=== PATIENT | female | born 1945 | race Caucasian/White ===

== ENCOUNTER 2023-09-27 14:01 | Outpatient (OUT) | payer MEDICARE, BC, SELFPAY ==
--- NOTE | 2023-09-27 | XR_ITS ---
The [address] [address] Patient Name: OTILIO DARLING MRN: [id number] date: 1945 Sex: F Assigned Patient Location: [facility] Current Patient Location: [facility] Accession/Order Number: [id number] Exam Date: 09/27/2023 14:33 Report Date: 09/27/2023 16:04 At the request of: NORMA IRAHETA Procedure: XR foot LT min 3V PROCEDURE: XR foot LT min 3V DATE: 09/27/2023 1:33 PM [facility] COMPARISONS: Reference is made to multiple ankle radiographs which show ankle surgery. Reference is made to foot images of 04/22/2020 CLINICAL INDICATION: LEFT FOOT PAIN FINDINGS: There is diffuse bone demineralization. There is evidence of extensive ankle surgery as described on ankle radiographs done the same day. There is mild hallux valgus deformity. There is mild to moderate first carpometacarpal degenerative change. There is mild midfoot degenerative change and some subtalar degenerative change. There is a moderate-sized spur off the posterior inferior os calcis.. XR/XR foot LT min 3V IMPRESSION: Findings as discussed above. Foot radiographs show no evidence of acute osseous abnormalities. Electronically authenticated by: YARELIS AMARAL Date: 09/27/2023 16:04
--- NOTE | 2023-09-27 | XR_ITS ---
The [address] [address] Patient Name: OTILIO DARLING MRN: [id number] date: 1945 Sex: F Assigned Patient Location: [facility] Current Patient Location: [facility] Accession/Order Number: [id number] Exam Date: 09/27/2023 14:31 Report Date: 09/27/2023 16:02 At the request of: NORMA IRAHETA Procedure: XR ankle LT min 3V PROCEDURE: XR ankle LT min 3V DATE: 09/27/2023 1:31 PM CHIEF CRNA COMPARISONS: Left ankle radiographs from 07/07/2021 CLINICAL INDICATION: LEFT ANKLE PAIN FINDINGS: There is no evidence of fractures or other acute osseous abnormalities. 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 Moderate-sized spur is noted off the posterior inferior os calcis, stable. XR/XR ankle LT min 3V IMPRESSION: Stable postop changes of the left ankle. Electronically authenticated by: YARELIS AMARAL Date: 09/27/2023 16:02
== END 2023-09-27 14:02 | disposition home or self-care (01) ==
LOC: RAD 14:02
PROVIDERS: Visit Provider Podiatrist Foot & Ankle Surgery
DX: M79.672 Pain in left foot (principal); M25.572 Pain in left ankle and joints of left foot
CPT/HCPCS: 73610; 73630

== ENCOUNTER 2023-10-31 14:13 | Outpatient (OUT) | payer MEDICARE, BC, SELFPAY ==
--- NOTE | 2023-10-31 | CONS_ITS ---
CONSULTATION DATE: 10/31/2023 TO: Dr. Marques CHIEF COMPLAINT: Includes left foot pain. HISTORY OF PRESENT ILLNESS: Review of systems, past medical/surgical history were obtained and documented on the health questionnaire and is available upon request. She is a 77-year-old female who has undergone left ankle replacement in 2019. She reports that her ankle pain has dramatically improved, but was left with left foot pain, described as 10/10, deep aching character with a sharp component. Pain increased with any kind of weight bearing maneuver. She also reports dorsiflexion of her toes is quite painful. She has very little mobility of her ankle itself. She denies any change in bowel and bladder habits or new sensorimotor changes in the lower extremities. MEDICATION: Current medication includes ibuprofen which she has been taking for at least the last two years. She has also been involved in physical therapy in a supervised fashion, despite considerable efforts and improvement in her symptomatology. She reports her residual pain still alters her quality of life, level of functioning and sleep pattern, and reports the pain as being significant. EXAMINATION: Notable for the patient having no clinical signs consistent with myelopathy or radiculopathy involving the lower extremities. She is status post left ankle replacement. She has limited range of motion to dorsiflexion, plantar flexion, inversion and eversion; however, she has fairly well preserved dorsiflexion and plantar flexion of her toes, but with the performed range of motion of her toes, she did complain of significant pain in her foot, starting at the ball of her foot, extending to the mid portion of her left foot. She is exquisitely tender and severe spasm of the left plantaris muscle, significant dysesthesia and hypoesthesia long the distribution of the left medial calcaneal nerve. I could not appreciate any signs consistent with complex regional pain syndrome type 1 or type 2. 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 RECOMMENDATIONS: I have asked the patient to initiate physical therapy with the use of various modalities including ultrasound for her left plantaris spasm. I have placed her on baclofen 10 mg pills, half a pill to one pill b.i.d. Follow up with the patient in approximately four weeks time to monitor her response. I have also indicated to the patient that we may consider proceeding with a medial calcaneal nerve injection, if her current symptoms do not improve with further conservative therapy. As part of providing excellent, safe, comprehensive care, the following was completed at our patient's visit: 1. A medication reconciliation and review to ensure accurate knowledge of current/active medications, including asking our patients to inform us about any [id number] medications or herbal remedies/nutritional supplements/alternative remedies. 2. A review to specifically ensure our patients have had annual screening for: elevated body mass index (BMI, see intake chart for exact total), tobacco use, screening for depression, and screening for unhealthy alcohol use. When screening is concerning, patients are provided with education and the specific recommendation to discuss the concerning health issue and treatment options with their primary care provider. MÓNICA
--- OUTSIDE RECORDS SUMMARY | 2023-10-31 14:17 | XMS_ITS | CCD ---
Author Name Unknown Address [address] [place] [address] Organization [facility] Care Team Providers Care Station Usher Name Role Phone Sudeep Ackerman Unavailable Sudeep Kelly Unavailable Sudeep Ackerman Unavailable Evelyn Raymond Unavailable Matt León Unavailable DO Sudeep Ackerman Primary Care Provider PARVIZ Marques Attending Provider SHONNA WOODS Attending Unavailable SHONNA WOODS Admitting Unavailable DO Sudeep Ackerman Primary Care Provider DO Sudeep Ackerman Attending Provider [phone] Sudeep Ackerman Primary Care Unavailable Sudeep Ackerman Attending Unavailable Sudeep Ackerman Admitting Unavailable Gerard Marques Admitting Unavailable Gerard Marques Attending Unavailable Sudeep Ackerman Primary Care Unavailable PARVIZ Marques Attending Provider Allergies Allergy Classification Reported Allergen(s) Allergy Type Date of Onset Reaction(s) Facility (11 sources) Cephalexin Drug Allergy 2 rash, itching, hives, Itching [facility] (16 sources) Cephalexin; Translations: [Keflex] Drug Allergy rash, itching, hives [facility] (1 source) Cephalexin Drug Allergy 2 [facility] Medications Current Medications Medication Drug Class(es) Dates Sig (Normalized) Sig (Original) 8 hr acetaminophen 650 mg extended release oral tablet (18 sources) Start: 02-02-2022 take 1 tablet by mouth every twelve hours Acetaminophen (Tylenol Arthritis) 650 mg Tablet Extended Release Active 650 MG PO Q12H February 01, 2022 11:00pm take 1 tablet by jaswant th every eight hours Tylenol 325 MG 1 tablet as needed Orally every 8 hrs PRN Not-Taking/PRN take 1 tablet by jaswant th every four hours Tylenol 325 MG 1 tablet as needed Orally every 4 hrs Active acetaminophen 325 mg / HYDROcodone bitartrate 5 mg oral tablet (2 sources) Opioid Agonist Start: 02-07-2022 take 1 tablet by mouth every eight hours as needed for pain HYDROcodone-Acetaminophen 5-325 MG 1 tablet as needed for pain Orally up to every 8 hrs for 5 days ANA: [id number] February, Active Start: 02-07-2022 take 1 tablet by jaswant th every four hours as needed for pain HYDROcodone-Acetaminophen 5-325 MG 1 tab let as needed for pain Orally up to every 4 hrs for 5 days ANA: [id number] February, Active Bacitraycin Plus 500-10 UNIT-MG/GM (6 sources) Bacitraycin Plus 500-10 UNIT-MG/GM Externally PRN Active Calcium + D 315-200 MG-UNIT (12 sources) take 1 tablet by jaswant th twice daily Calcium + D 315-200 MG-UNIT 1 tablet Orally Twice a day Not-Taking take 1 tablet by mouth twice michelle ly take 1 tablet by mouth twice michelle ly Calcium + D 315-200 MG-UNIT 1 tablet Orally Twice a day Active diclofenac sodium 0.01 mg/mg topical gel (2 sources) Nonsteroidal Anti-inflammatory Drug Start: 04-18-2022 Diclofenac Sodium 1 % apply 1-2 grams to affected area Externally Four times a day for 30 days Apr, Active escitalopram 5 mg oral tablet (4 sources) Serotonin Reuptake Inhibitor Start: 05-04-2022 Escitalopram Oxalate 5 MG 1 tablet x 7 days, and then 2 tablets for 23 days Orally Once a day for 30 day(s) Apr, Active gabapentin 300 mg oral capsule (6 sources) Anti-epileptic Agent Start: 07-05-2022 take 1 capsule by mouth twice daily Gabapentin 300 MG 1 capsule Orally twice daily for 30 day(s) Jun, Active Handicap placards as directed (4 sources) Start: 12-07-2022 Handicap placards as directed as directed as directed as directed Dec, Active meloxicam 7.5 mg oral tablet (20 sources) Nonsteroidal Anti-inflammatory Drug Start: 11-30-2021 take 7.5 mg by mouth once daily in the morning Meloxicam Active 7.5 MG PO Every morning February 01, 2022 11:00pm take 1 tablet by mouth every twe lve hours metoprolol tartrate 50 mg oral tablet (20 sources) beta-Adrenergic Isiah Start: 02-02-2022 take 50 mg by mouth twice daily Metoprolol Tartrate Active 50 MG PO Twice daily February 01, 2022 11:00pm Start: 07-23-2018 End: 02-02-2022 take 25 mg by mouth once daily Metoprolol Tartrate Dis continued 25 MG PO Daily July 22, 2018 11:00pm February 02, 2022 8:55am Multivitamin preparation (4 sources) Start: 02-02-2022 take 1 tablet by mouth once daily Multivitamin Active 1 TAB PO Daily February 01, 2022 11:00pm Start: 02-02-2022 take 1 tablet by jaswant th once daily Multivitamin Active 1 TAB PO Daily February 02, 2022 12:00am take 1 tablet by jaswant th once daily Multivitamin - 1 tablet Orally Once a day Active Clayton 3 340 MG (6 sources) take 2 capsules by mouth twice daily Clayton 3 340 MG 2 capsules Orally BID Active pravastatin sodium 40 mg oral tablet (20 sources) HMG-CoA Reductase Inhibitor Start: take 40 mg by mouth once daily in the morning Pravastatin Active 40 MG PO Every morning July 22, 2018 11:00pm Completed/Discontinued Medications Medication Drug Class(es) Dates Sig (Normalized) Sig (Original) famotidine 40 mg oral tablet (20 sources) Histamine-2 Receptor Antagonist Start: 09-16-2021 take 1 tablet by mouth every twenty-four hours Famotidine 40 MG 1 tablet as needed Orally Once a day for 30 day(s) Sep, Not-Taking/PRN ibuprofen 800 mg oral tablet (3 sources) Nonsteroidal Anti-inflammatory Drug Start: 08-02-2018 End: 08-03-2018 Ibuprofen Discontinued 800 MG PO 2-3 TIMES PER DAY August 01, 2018 11:00pm August 03, 2018 5:34pm Problems Active Problems Problem Classification Problem Date Documented Date Episodic/Chronic Diabetes mellitus without complication (20 sources) Disorder of glucose metabolism; Translations: [Other abnormal glucose] Episodic Disorders of lipid metabolism (20 sources) Pure hypercholesterolemia; Translations: [Pure hypercholesterolemia, unspecified] Onset: 09-16-2021 Resolved: 09-16-2021 Chronic Esophageal disorders (20 sources) Gastroesophageal reflux disease without esophagitis; Translations: [Gastro-esophageal reflux disease without esophagitis] Onset: 09-16-2021 Resolved: 09-16-2021 Chronic Essential hypertension (20 sources) Essential hypertension; Translations: [Essential (primary) hypertension] Onset: 09-16-2021 Resolved: 03-17-2022 Chronic Immunizations and screening for infectious disease (1 source) Encounter for immunization Episodic Malaise and fatigue (20 sources) Fatigue; Translations: [Chronic fatigue, unspecified] Chronic Mood disorders (10 sources) Moderate major depression ; Translations: [Major depressive disorder, single episode, moderate] Onset: 05-04-2022 Resolved: 05-04-2022 Chronic Nonspecific chest pain (1 source) Chest pain, unspecified Episodic Nutritional deficiencies (20 sources) Vitamin D deficiency; Translations: [Vitamin D deficiency, unspecified] Chronic Occlusion or stenosis of precerebral arteries (6 sources) Bilateral stenosis of carotid arteries; Translations: [Occlusion and stenosis of bilateral carotid arteries] Chronic Osteoporosis (20 sources) Osteoporosis; Translations: [Age-related osteoporosis without current pathological fracture] Onset: 07-08-2021 Resolved: 07-08-2021 Chronic Other circulatory disease (2 sources) Other specified symptoms and signs involving the circulatory and respiratory systems; Translations: [Other specified symptoms and signs involving the circulatory and respiratory systems] Onset: 10-13-2023 Episodic Other inflammatory condition of skin (20 sources) Psoriasis; Translations: [Other psoriasis] Chronic Other nervous system disorders (20 sources) Carpal tunnel syndrome; Translations: [Carpal tunnel syndrome, unspecified upper limb] Chronic Other nervous system disorders (20 sources) Chronic pain; Translations: [Other chronic pain] Chronic Other nervous system disorders (20 sources) Polyneuropathy; Translations: [Polyneuropathy, unspecified] Chronic Other nervous system disorders (1 source) Other chronic pain; Translations: [Other chronic pain G89.29] Onset: 07-08-2021 Resolved: 07-08-2021 Chronic Other nervous system disorders (3 sources) Carpal tunnel syndrome, right upper limb Onset: 12-29-2021 Resolved: 05-17-2022 Chronic Other nervous system disorders (15 sources) Carpal tunnel syndrome of right wrist; Translations: [Carpal tunnel syndrome, right upper limb] Chronic Other nervous system disorders (2 sources) Carpal tunnel syndrome, bilateral upper limbs; Translations: [Carpal tunnel syndrome, bilateral upper limbs] Onset: 04-18-2022 Resolved: 04-18-2022 Chronic Other nervous system disorders (8 sources) Carpal tunnel syndrome of left wrist; Translations: [Carpal tunnel syndrome, left upper limb] Chronic Other nervous system disorders (1 source) Carpal tunnel syndrome, left upper limb Onset: 05-17-2022 Resolved: 05-17-2022 Chronic Other nervous system disorders (5 sources) Skin sensation disturbance; Translations: [Paresthesia of skin] Episodic Other nervous system disorders (1 source) Paresthesia of skin; Translations: [Numbness and tingling of foot] Episodic Spondylosis; intervertebral disc disorders; other back problems (20 sources) Degeneration of lumbar intervertebral disc; Translations: [Other intervertebral disc degeneration, lumbar region] Onset: 03-17-2022 Resolved: 03-17-2022 Chronic Unclassified (1 source) Encounter for screening mammogram for malignant neoplasm of breast; Translations: [Encounter for screening mammogram for malignant neoplasm of breast] Onset: 09-04-2023 Past or Other Problems Problem Classification Problem Date Documented Date Episodic/Chronic E Codes: Fall (1 source) Unspecified fall, initial encounter Onset: 12-15-2021 Resolved: 12-15-2021 Episodic Fluid and electrolyte disorders (2 sources) Hyperkalemia Onset: 12-26-2021 Resolved: 12-29-2021 Episodic Other non-traumatic joint disorders (1 source) Pain in right shoulder; Translations: [Pain in right shoulder M25.511] Onset: 07-08-2021 Resolved: 07-08-2021 Episodic Other non-traumatic joint disorders (1 source) Pain in left shoulder; Translations: [Pain in left shoulder M25.512] Onset: 07-08-2021 Resolved: 07-08-2021 Episodic Other non-traumatic joint disorders (1 source) Pain in right hip Onset: 12-15-2021 Resolved: 12-15-2021 Episodic Other screening for suspected conditions (not mental disorders or infectious disease) (1 source) Encounter for screening mammogram for malignant neoplasm of breast Onset: 03-17-2022 Resolved: 03-17-2022 Episodic Residual codes; unclassified (1 source) Asymptomatic menopausal state; Translations: [Post-menopausal Z78.0] Onset: 07-08-2021 Resolved: 07-08-2021 Episodic Residual codes; unclassified (2 sources) Other specified postprocedural states Onset: 02-07-2022 Resolved: 05-17-2022 Episodic Results Test Name Value Interpretation Reference Range Facil ity CT ankle LT wo conon 024 CT ankle LT wo con [facility] [place] [address] [place] [address] CT Scan Report Signed Patient: Riky Prajapati MR#: [id number] : 1945 Acct:[id number] Age/Sex: 77 / F ADM Date: 10/13/23 Loc: CT Room: Type: [facility] Attending Dr: Gerard Marques DPM, MS Copies to: Gerard Marques DPM, MS Ordering Provider: Gerard Marques DPM, MS Date of Service: 10/13/23 CT/CT ankle LT wo con: ANKLE DJD CT ankle LT wo con 10/13/2023 11:06 AM SIGNS AND SYMPTOMS: Left ankle pain, blue left foot. History of left ankle replacement TECHNIQUE: Multidetector CT axial slices of the left ankle without IV contrast. Multiplanar and 3-D reformats were performed and viewed on a separate workstation and reviewed to further define anatomy and possible pathology. CT was performed with one or more of the following dose reduction techniques: Automated exposure control, adjustment of the mA and/or kV according to patient size, or use of iterative reconstruction technique. COMPARISON: 05/31/2022 FINDINGS: There is left ankle arthroplasty hardware. There is no definite hardware complication or loosening. There is no malalignment. There is lateral plate and screw fixation of the distal fibula. There is partial bony fusion across the distal tibia/fibular syndesmosis. There is significant osteopenia extending into the hindfoot and midfoot. Degenerative changes are noted in the anterior subtalar joint space along with narrowing of the tibiotalar joint space. There is plantar surface calcaneal spurring. There is a small os perineum near the base of the fifth metatarsal which is well-corticated. There is a type II os navicularis. There is no evidence of acute displaced fracture. There is nonspecific edema throughout the subcutaneous soft tissues suspicious for either chronic venous stasis or cellulitis. CT/CT ankle LT wo con IMPRESSION: Status post arthroplasty of the tibiotalar joint space without hardware complication. Status post lateral plate and screw fixation of a distal fibular fracture without hardware complication. Degenerative changes are noted in the subtalar joints and tibiotalar joint space. Diffuse soft tissue swelling is noted which may represent sequelae of chronic venous stasis or cellulitis. There is plantar surface calcaneal spurring. There is a small os perineum near the base of the fifth metatarsal which is well-corticated. There is a type II os navicularis. Impression dictated by: Bhupendra Barry M.D.10/13/2023 5:19 PM Dictation Location: [place] [address] Transcribed By: [facility] 10/13/231718 Dictated By: Bhupendra Barry II, MD 10/13/231710 Signed By: 10/13/231718 [facility] US arterial pvr rest Jessica US arterial pvr rest [facility] [place] [address] [place] [address] Ultrasound Report Signed Patient: Riky Prajapati MR#: [id number] : 1945 Acct:[id number] Age/Sex: 77 / F ADM Date: 10/13/23 Loc: CT Room: Type: [facility] Attending Dr: Gerard Marques DPM, MS Ordering Provider: Gerard Marques DPM, MS Date of Service: 10/13/23 US/US arterial pvr rest LE: R09.89 Copies to: Gerard Marques DPM, MS LOWER EXTREMITY SEGMENTAL ARTERIAL DOPSCAN (PVR) INDICATION: Left foot pain PROCEDURE: Right arm blood pressure is 164 , left is 160 . Pressures throughout the right leg are cno at the high thigh, at the 193 low thigh, 147 at the calf, 88 at the ankle using the posterior tibial artery, and 122 at the ankle using the dorsalis pedis artery with ankle-brachial index of 0.54 0.74 . Pressures throughout the left leg are cno at the high thigh, at the cno low thigh, 125 at the calf and 123 at the ankle using the posterior tibial artery, and 130 at the ankle using the dorsalis pedis artery with ankle-brachial index of 0.75 0.79 . Wave forms by plethysmography are mildly blunted Toe pressures of the right foot are 134 the first toe, 133 and the second toe, 142 and the third toe, 161 and the fourth toe, and 100 and the fifth toe. This gives a first toe brachial index of 0.8. Pressures in the left digits are 103 and the first toe with a toe brachial index of 0.6. The second toe pressure is 138, third toe 122, fourth toe 146, and fifth toe 108 mmHg. US/US arterial pvr rest LE IMPRESSION: Mild bilateral peripheral vascular occlusive disease at rest with diminished ankle- brachial indices. The digital pressures are as expected on the right foot and mildly diminished in the left foot IMPRESSION: NO HEMODYNAMICALLY SIGNIFICANT PERIPHERAL VASCULAR OCCLUSIVE DISEASE AT REST IN EITHER LOWER EXTREMITY. Impression dictated by: Babatunde Dixon M.D.10/13/2023 3:52 PM Dictation Location: [place] [address] Tech: Evelyn Owusu Transcribed By: GORDON 10/13/23 1552 Dictated By: Babatunde Dixon MD 10/13/23 1549 Signed By: 10/13/23 1552 [facility] MM screening mammo BI w/CADo n 09-04-2023 MM screening mammo BI w/CAD [facility] [place] [address] [place] [address] Mammography Report Signed Patient: Riky Prajapati MR#: [id number] : 1945 Acct:[id number] Age/Sex: 77 / F ADM Date: 09/04/23 Loc: [place] Room: [facility] Attending Dr: Sudeep Ackerman DO Copies to: DO Sudeep Panchal DO Ordering Provider: Matt Ferguson DO Date of Service: 09/04/23 MM/MM screening mammo BI w/CAD: screening;Screening mammogram, encounter for CLINICAL DATA: Screening for malignancy. SCREENING MAMMOGRAM - FULL FIELD DIGITAL WITH TOMOSYNTHESIS AND CAD COMPARISON:Mammograms dating back to 2018 Tomosynthesis craniocaudal and mediolateral oblique views of both breasts were obtained using low- dose digital technique. This examination was reviewed with the aid of CAD. The breast tissue is composed of scattered fibroglandular densities. There are no dominant masses, typically malignant calcifications or architectural distortion. There has been no significant interval change. MM/MM screening mammo BI w/CAD IMPRESSION: NO MAMMOGRAPHIC EVIDENCE OF MALIGNANCY. ROUTINE FOLLOW-UP IS RECOMMENDED IN ONE YEAR. RESULT CODE: 1 Negative DENSITY CODE: 2 (approximately 25-50% glandular) FOLLOW UP: 1YR The false-negative rate of mammography is approximately 10-percent. Management of a palpable abnormality must be based on clinical grounds. Patient was entered into a reminder system with a target due date for the next mammogram. Impression dictated by: Piotr Pimentel Jr., D.ODerick09/04/2023 4:30 PM Dictation Location: [facility] Transcribed By: [facility] 09/04/23 1630 Dictated By: Piotr Pimentel Jr, DO 09/04/23 1629 Signed By: 09/04/23 1630 Normal [facility] XR shoulder BI min 2Von 10-1 XR shoulder BI min 2V [facility] Other XR shoulder BI min 2V [facility] [employer] [facility] Other XR shoulder BI min 2V [address] [place] [address] [facility] Other XR shoulder BI [place] 2[place] [address] [facility] Other XR shoulder BI min 2V XRay Report [facility] Other XR shoulder BI min 2V Signed [facility] Other XR shoulder BI min 2V Patient: Riky Prajapati MR#: [id number] [facility] Other XR shoulder BI min 2V [id number] [facility] Other XR shoulder BI min 2V : 1945 Acct:[id number] [facility] Other XR shoulder BI min 2V Age/Sex: 75 / F ADM Date: 07/21/21 [facility] Other XR shoulder BI min 2V Loc: [place] Room: Type: [facility] Other XR shoulder BI min 2V Attending Dr: Sudeep Ackerman DO [facility] Other XR shoulder BI min 2V Ordering Provider: Sudeep Ackerman DO [facility] Other XR shoulder BI min 2V Date of Service: 07/21/21 [facility] Other XR shoulder BI min 2V XR/XR shoulder BI min 2V: Pain in right shoulder;Other chronic pain;Pain [facility] Other XR shoulder BI min 2V in left shoul [facility] Other XR shoulder BI min 2V Copies to: Sudeep Ackerman DO [facility] Other XR shoulder BI min 2V Bilateral shoulders 07/21/2021. [facility] Other XR shoulder BI min 2V CLINICAL DATA: Bilateral shoulder pain. [facility] Other XR shoulder BI min 2V FINDINGS: 3 views of each of the right and left shoulders were obtained for a total of 6 images. [facility] Other XR shoulder BI min 2V No acute fracture or dislocation is identified. There are degenerative changes consisting mainly of [facility] Other XR shoulder BI min 2V marginal osteophyte formation at the right and left glenohumeral and acromioclavicular joints. No [facility] Other XR shoulder BI min 2V bony erosion or destruction is seen. [facility] Other XR shoulder BI min 2V XR/XR shoulder BI min 2V [facility] Other XR shoulder BI min 2V IMPRESSION: Degenerative changes at both shoulders. [facility] Other XR shoulder BI min 2V Impression dictated by: Matt Cohen Jr., M.D.07/21/2021 7:13 PM [facility] Other XR shoulder BI min 2V Dictation Location: [place] [address] [facility] Other XR shoulder BI min 2V Transcribed By: GORDON 07/21/211912 [facility] Other XR shoulder BI min 2V Dictated By: Matt Cohen Jr, MD 07/21/21 [facility] Other XR shoulder BI min 2V Signed By: [facility] Other XR shoulder BI min 2V 07/21/21 [facility] Other Vital Signs Date Time Vital Sign Value Performing Clinician Facility 10-11-2023 15:15-0500 Body height 165.1 cm Sudeep Ackerman Other [facility] Other 10-11-2023 15:15-0500 Body mass index (BMI) [Ratio] 27.79 kg/m2 Sudeep Ackerman Other [facility] Other 10-11-2023 15:15-0500 Body temperature 98.2 [degF] Sudeep Ackerman Other [facility] Other 10-11-2023 15:15-0500 Body weight 75.75 kg Sudeep Ackerman Other [facility] Other 10-11-2023 15:15-0500 Diastolic blood pressure 84 mm[Hg] Sudeep Ackerman Other [facility] Other 10-11-2023 15:15-0500 Respiratory rate 18 /min Sudeep Ackerman Other [facility] Other 10-11-2023 15:15-0500 SaO2% (BldA) [Mass fraction] 97 % Sudeep Ackerman Other [facility] Other 10-11-2023 15:15-0500 Systolic blood pressure 122 mm[Hg] Sudeep Ackerman Other [facility] Other 09-19-2022 14:15-0500 Body height 165.1 cm Sudeep Ackerman Other [facility] Other 09-19-2022 14:15-0500 Body mass index (BMI) [Ratio] 27.95 kg/m2 Sudeep Ackerman Other [facility] Other 09-19-2022 14:15-0500 Body weight 76.2 kg Sudeep Ackerman Other [facility] Other 09-19-2022 14:15-0500 Diastolic blood pressure 82 mm[Hg] Sudeep Ackerman Other [facility] Other 09-19-2022 14:15-0500 Respiratory rate 18 /min Sudeep Ackerman Other [facility] Other 12-12-2022 14:15-0500 SaO2% (BldA) [Mass fraction] 98 % Sudeep Ackerman Other [facility] Other 09-19-2022 14:15-0500 Systolic blood pressure 128 mm[Hg] Sudeep Ackerman Other [facility] Other 05-17-2022 12:00-0400 Body height 165.1 cm Sudeep Kelly Other [facility] Other 05-17-2022 12:00-0400 Body mass index (BMI) [Ratio] 28.49 kg/m2 Sudeep Munguiaxa Other [facility] Other 05-17-2022 12:00-0400 Body weight 77.66 kg Sudeep Munguiaxa Other [facility] Other 05-04-2022 15:00-0400 Body height 165.1 cm Matt León Other [facility] Other 05-04-2022 15:00-0400 Body mass index (BMI) [Ratio] 28.52 kg/m2 Matt Fabiányury Other [facility] Other 05-04-2022 15:00-0400 Body weight 77.75 kg Matt León Other [facility] Other 05-04-2022 15:00-0400 Diastolic blood pressure 72 mm[Hg] Matt Mau Other [facility] Other 05-04-2022 15:00-0400 Respiratory rate 16 /min Matt León Other [facility] Other 05-04-2022 15:00-0400 SaO2% (BldA) [Mass fraction] 96 % Matt León Other [facility] Other 05-04-2022 15:00-0400 Systolic blood pressure 138 mm[Hg] Matt León Other [facility] Other 03-17-2022 14:15-0400 Body height 165.1 cm Sudeep Ackerman Other [facility] Other 03-17-2022 14:15-0400 Body mass index (BMI) [Ratio] 29.62 kg/m2 Sudeep Ackerman Other [facility] Other 03-17-2022 14:15-0400 Body temperature 97.8 [degF] Sudeep Ackerman Other [facility] Other 03-17-2022 14:15-0400 Body weight 80.74 kg Sudeep Ackerman Other [facility] Other 03-17-2022 14:15-0400 Diastolic blood pressure 73 mm[Hg] Sudeep Ackerman Other [facility] Other 03-17-2022 14:15-0400 Respiratory rate 16 /min Sudeep Ackerman Other [facility] Other 03-17-2022 14:15-0400 SaO2% (BldA) [Mass fraction] 96 % Sudeep Ackerman Other [facility] Other 03-17-2022 14:15-0400 Systolic blood pressure 137 mm[Hg] Sudeep Ackerman Other [facility] Other 12-29-2021 14:15-0400 Body height 165.1 cm Sudeep Ackerman Other [facility] Other 12-29-2021 14:15-0400 Body mass index (BMI) [Ratio] 30.02 kg/m2 Sudeep Ackerman Other [facility] Other 12-29-2021 14:15-0400 Body temperature 97.6 [degF] Sudeep Ackerman Other [facility] Other 12-29-2021 14:15-0400 Body weight 81.83 kg Sudeep Ackerman Other [facility] Other 12-29-2021 14:15-0400 Diastolic blood pressure 70 mm[Hg] Sudeep Ackerman Other [facility] Other 12-29-2021 14:15-0400 Respiratory rate 18 /min Sudeep Ackerman Other [facility] Other 12-29-2021 14:15-0400 SaO2% (BldA) [Mass fraction] 97 % Sudeep Ackerman Other [facility] Other 12-29-2021 14:15-0400 Systolic blood pressure 130 mm[Hg] Sudeep Ackerman Other [facility] Other 09-16-2021 14:15-0500 Body height 165.1 cm Sudeep Ackerman Other [facility] Other 09-16-2021 14:15-0500 Body mass index (BMI) [Ratio] 30.12 kg/m2 Sudeep Ackerman Other [facility] Other 09-16-2021 14:15-0500 Body temperature 97.6 [degF] Sudeep Ackerman Other [facility] Other 09-16-2021 14:15-0500 Body weight 82.1 kg Sudeep Ackerman Other [facility] Other 09-16-2021 14:15-0500 Diastolic blood pressure 74 mm[Hg] Sudeep Ackerman Other [facility] Other 09-16-2021 14:15-0500 Respiratory rate 16 /min Sudeep Ackerman Other [facility] Other 09-16-2021 14:15-0500 SaO2% (BldA) [Mass fraction] 98 % Sudeep Ackerman Other [facility] Other 09-16-2021 14:15-0500 Systolic blood pressure 130 mm[Hg] Sudeep Ackerman Other [facility] Other 07-08-2021 15:15-0400 Body height 165.1 cm Sudeep Ackerman Other [facility] Other 07-08-2021 15:15-0400 Body mass index (BMI) [Ratio] 29.95 kg/m2 Sudeep Ackerman Other [facility] Other 07-08-2021 15:15-0400 Body temperature 97.8 [degF] Sudeep Ackerman Other shopp Other 07-08-2021 15:15-0400 Body weight 81.65 kg Sudeep Ackerman Other shopp Other 07-08-2021 15:15-0400 Diastolic blood pressure 66 mm[Hg] Sudeep Ackerman Other shopp Other 07-08-2021 15:15-0400 Respiratory rate 16 /min Sudeep Ackerman Other shopp Other 07-08-2021 15:15-0400 SaO2% (BldA) [Mass fraction] 98 % Sudeep Ackerman Other shopp Other 07-08-2021 15:15-0400 Systolic blood pressure 118 mm[Hg] Sudeep Ackerman Other shopp Other Encounters Encounter Date Encounter Type Care Provider Facility Start: 10-13-2023 End: 10-13-2023 ambulatory Gerard Marques Facility:[facility] Start: 10-13-2023 End: 10-13-2023 ambulatory DO Sudeep Ackerman Work Phone: [facility] Work Phone: Start: 10-13-2023 End: 10-13-2023 Patient encounter procedure DO Sudeep Ackerman Work Phone: [facility] [place] Work Phone: Start: 10-11-2023 End: 10-11-2023 ambulatory Sudeep Ackerman Other shopp Other Start: 10-11-2023 Patient encounter procedure Sudeep Ackerman [facility] [place] Start: 09-04-2023 End: 09-04-2023 ambulatory Sudeep Ackerman Facility:[facility] Start: 09-04-2023 End: 09-04-2023 ambulatory DO Sudeep Ackerman Work Phone: [facility] Work Phone: Start: 09-04-2023 End: 09-04-2023 Patient encounter procedure DO Sudeep Ackerman Work Phone: [facility] Work Phone: Start: 06-28-2023 End: 06-28-2023 ambulatory Sudeep Ackerman Other shopp Other Start: 06-28-2023 Telephone encounter Sudeep [facility] [place] Start: 03-21-2023 End: 03-21-2023 ambulatory Sudeep Ackerman Other shopp Other Start: 03-21-2023 Telephone encounter Sudeep [facility] [place] Start: 12-07-2022 End: 12-07-2022 ambulatory Sudeep Ackerman Other shopp Other Start: 12-07-2022 Telephone encounter Sudeep [facility] [place] Start: 11-10-2022 ambulatory SHONNA WOODS Facilit y:[facility] Start: 09-19-2022 End: 09-19-2022 ambulatory Sudeep Ackerman Other shopp Other Start: 09-19-2022 Office outpatient vi sit 15 minutes Sudeep [facility] [place] Start: 08-16-2022 End: 08-16-2022 ambulatory Sudeep Ackerman Other shopp Other Start: 08-16-2022 Telephone encounter Sudeep [facility] [place] Start: 06-07-2022 End: 06-07-2022 ambulatory Sudeep Ackerman Other shopp Other Start: 06-07-2022 Telephone encounter Sudeep [facility] [place] Start: 05-31-2022 End: 05-31-2022 Patient encounter procedure DO Sudeep Ackerman Work Phone: [facility] Start: 05-17-2022 End: 05-17-2022 ambulatory Sudeep Kelly Other shopp Other Start: 05-17-2022 Encounter for other preprocedural examination Sudeep Kelly [facility] Start: 05-17-2022 Office outpatient vi sit 25 minutes Sudeep Kelly [facility] Start: 05-04-2022 End: 05-04-2022 ambulatory Matt Mau Other shopp Other Start: 05-04-2022 Office outpatient vi sit 15 minutes Matt León [facility] Start: 05-03-2022 End: 05-03-2022 ambulatory Sudeep Ackerman Other shopp Other Start: 05-03-2022 Telephone encounter Sudeep Ackerman [facility] [place] Start: 04-18-2022 End: 04-18-2022 ambulatory Evelyn Raymond Other shopp Other Start: 04-18-2022 Telephone encounter Evelyn Raymond [facility] Start: 03-17-2022 End: 03-17-2022 ambulatory Sudeep Ackerman Other shopp Other Start: 03-17-2022 Office outpatient vi sit 15 minutes Sudeep Ackerman [facility] [place] Start: 02-14-2022 End: 02-14-2022 ambulatory Sudeep Kelly Other shopp Other Start: 02-14-2022 Telephone encounter Sudeep Kelly [facility] Start: 02-07-2022 End: 02-07-2022 ambulatory Sudeep Kelly Other shopp Other Start: 02-07-2022 Telephone encounter Sudeep Kelly [facility] Start: 02-01-2022 End: 02-01-2022 ambulatory Sudeep Kelly Other shopp Other Start: 02-01-2022 Telephone encounter Sudeep [facility] Start: 12-29-2021 End: 12-29-2021 ambulatory Sudeep Ackerman Other shopp Other Start: 12-29-2021 Office outpatient vi sit 15 minutes Sudeep Ackerman [facility] Start: 12-26-2021 End: 12-26-2021 ambulatory Sudeep Ackerman Other shopp Other Start: 12-26-2021 Telephone encounter Sudeep [facility] Start: 12-20-2021 End: 12-20-2021 ambulatory Sudeep Ackerman Other shopp Other Start: 12-20-2021 Telephone encounter Sudeep WILKINSON [facility] [place] Start: 12-15-2021 End: 12-15-2021 ambulatory Sudeep Ackerman Other shopp Other Start: 12-15-2021 Telephone encounter Sudeep WILKINSON [facility] [place] Start: 11-29-2021 End: 11-29-2021 ambulatory Sudeep Ackerman Other shopp Other Start: 11-29-2021 Telephone encounter Sudeep [facility]INSON [facility] [place] Start: 09-16-2021 End: 09-16-2021 ambulatory Sudeep Ackerman Other shopp Other Start: 09-16-2021 Office outpatient vi sit 25 minutes Sudeep Ackerman [facility] Start: 07-22-2021 Telephone encounter Sudeep [facility]INSON [facility] [place] Start: 07-08-2021 Office outpatient vi sit 15 minutes Sudeep Ackerman [facility] Procedures Date Procedure Procedure Detail Performing Clinician Start: 10-13-2023 CT ankle without contrast DO Sudeep العلي Work Phone: Start: 10-13-2023 Pulse volume recorder pneumoplethysmography DO Sudeep Ackerman Work Phone: Start: 09-04-2023 Screening mammography of bilateral breasts DO Sudeep Ackerman Work Phone: Start: 05-31-2022 X-ray of left ankle DO Sudeep Ackerman Work Phone: Immunizations Immunization Date Immunization Notes Care Provider Fa cilitrice 10-11-2023 influenza, injectabl e, quadrivalent, preservative free Sudeep Ackerman Other shopp Other 12-25-2020 COVID-19 Vaccine Pfi zer - Documentation Purposes Only Sudeep Ackerman Other [facility] 12-03-2020 COVID-19 Vaccine Pfi zer - Documentation Purposes Only Sudeep Ackerman Other [facility] 03-19-2019 zoster vaccine recombinant Sudeep Ackerman Other shopp Other 12-20-2018 zoster vaccine recombinant Sudeep Ackerman Other shopp Other 08-02-2018 tetanus toxoid, redu nate diphtheria toxoid, and acellular pertussis vaccine, adsorbed DO Sudeep Ackerman Work Phone: [facility] 07-12-2018 influenza, seasonal, injectable Sudeep Ackerman Other shopp Other 10-20-2015 pneumococcal polysaccharide vaccine, 23 valent Sudeep Ackerman Other shopp Other 07-07-2015 influenza, injectabl e, quadrivalent, contains preservative Sudeep Ackerman Other shopp Other 09-02-2014 pneumococcal polysaccharide vaccine, 23 valent Sudeep Ackerman Other shopp Other 08-26-2014 influenza, injectabl e, quadrivalent, contains preservative Sudeep Ackerman Other shopp Other Payers Date Payer Category Payer Self-pay [id number] 1959 [facility] [id number] 1959 Medicare [id number] 1945 Unknown [id number] 3 [facility] [id number] Unknown [facility] [id number] Unknown [id number] 1 Unknown [id number] 1 Social History Date Type Detail Facility Sex Assigned At shopp Other Start: 02-09-2022 End: 02-09-2022 Tobacco smoking status DCIS Ex-smoker (finding) [facility] Start: 1945 Sex Assigned At Female F [facility] Clinical Notes 07-08-2021 to 10-11-2023 Note Date & Type Note Facility 10-11-2023 Evaluation note Encounter Date Diagnosis Assessment Notes Oct, Medicare annual wellness visit, subsequent (ICD-10 - Z00.00) Personalized health advice was given to the beneficiary including a written plan for screenings discussed and provided. Advanced care planning reviewed and/or information given as requested. The above visit was performed by BRAD Olvera, under direct supervision of Dr. Sudeep Ackerman DO. Document reviewed and amended by provider signed below. Oct, Mixed hyperlipidemia (ICD-10 - E78.2) Oct, Left sided chest pain (ICD-10 - R07.9) After discussion, we will proceed with lab work and stress testing. If she develops any severe or persistent chest pain she will immediately proceed to the ER Oct, Vitamin D deficiency (ICD-10 - E55.9) Oct, Flu vaccine need (ICD-10 - Z23) shopp Other 09-20-2023 Evaluation note* Encounter Date Diagnosis Assessment Notes Treatment Notes Treatment Clinical Notes Jun, Essential hypertension (ICD-10 - I10) shopp Other 12-12-2022 Evaluation note* Encounter Date Diagnosis Assessment Notes Treatment Notes Treatment Clinical Notes Sep, Bilateral carotid artery stenosis (ICD-10 - I65.23) We will repeat ultrasound and call with results Sep, Vitamin D deficiency (ICD-10 - E55.9) Sep, Mixed hyperlipidemia (ICD-10 - E78.2) Continue statin therapy Sep, Bruit of right carotid artery (ICD-10 - R09.89) shopp Other 11-08-2022 Evaluation note* Encounter Date Diagnosis Assessment Notes Treatment Notes Treatment Clinical Notes Aug, Essential hypertension (ICD-10 - I10) shopp Other 08-09-2022 Evaluation note* Encounter Date Diagnosis Assessment Notes Treatment Notes Treatment Clinical Notes May, Left carpal tunnel syndrome (ICD-10 - G56.02) We will plan on carpal tunnel release.The patient has stated that they do not want to live in this condition any longer and would like to proceed with surgery. I feel that this is a reasonable option at this point and we may be able to improve function and decrease pain and numbness. We have discussed the process and procedure in detail including not eating or drinking 8 hrs prior to surgery, the need for anesthesia and associated respiratory, cardiac, and patient position complications (such as nerve traction and compression). We discussed that incisional pain and continued neurologic symptoms can persist for months after surgery. The complications of infection, persistent symptoms, sensory and motor nerve injury are well known problems that can require repeat surgeries. Patient is fully aware that this wrist may never be the same. We discussed that our team will do everything we can to help achieve the best outcome. 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 She states that this has been ongoing for several months with onset occurring with the of her brother and then news of her son with colo/rectal cancer that lives in [place]. Advised that counseling could would be very beneficial and is a primary treatment option for onset of depression. She expresses that she does not want to perform counseling. Advised that medication management is not a one size fits all and that it can be complex with finding the appropriate medicaiton. Advised that we could start Escitalopram 5mg orally daily for 1 week and then increase if needed to 10mg after that for 3 weeks then F/U for OV. Advised that pt will need to decrease alcohol consumption and best to quit while taking medication. Pt acknowledged understanding and agrees to treatment plan. Will f/u in 4 weeks for OV. shopp Other 07-11-2022 Evaluation note* Encounter Date Diagnosis Assessment Notes Treatment Notes Treatment Clinical Notes Apr, Carpal tunnel syndrome, bilateral upper limbs (ICD-10 - G56.03) shopp Other 06-09-2022 Evaluation note* Encounter Date Diagnosis Assessment Notes Treatment Notes Treatment Clinical Notes Mar, Essential hypertension (ICD-10 - I10) Continue current medication Mar, Lumbosacral spondylosis (ICD-10 - M47.817) I advised her to continue the Tylenol and on a bad day she can take meloxicam 7.5 mg twice a day. I advised her to drink plenty of fluids and to take meloxicam with food Mar, Encounter for screening mammogram for malignant neoplasm of breast (ICD-10 - Z12.31) shopp Other 05-09-2022 Evaluation note* Encounter Date Diagnosis Assessment Notes Treatment Notes Treatment Clinical Notes February, Carpal tunnel syndrome of right wrist (ICD-10 - G56.01) shopp Other 05-02-2022 Evaluation note* Encounter Date Diagnosis Assessment Notes Treatment Notes Treatment Clinical Notes February, Other specified postprocedural states (ICD-10 - Z98.890) shopp Other 03-23-2022 Evaluation note* Encounter Date Diagnosis Assessment Notes Treatment Notes Treatment Clinical Notes Dec, Carpal tunnel syndrome of right wrist (ICD-10 - G56.01) Referral sent. In the meantime, I showed her some stretches to do at home and I recommended nighttime bracing Dec, Hyperkalemia (ICD-10 - E87.5) She will complete the lab on her way out today shopp Other 03-20-2022 Evaluation note* Encounter Date Diagnosis Assessment Notes Treatment Notes Treatment Clinical Notes Dec, Hyperkalemia (ICD-10 - E87.5) shopp Other 03-09-2022 Evaluation note* Encounter Date Diagnosis Assessment Notes Treatment Notes Treatment Clinical Notes Dec, Fall, initial encounter (ICD-10 - W19.XXXA) Dec, Acute right hip pain (ICD-10 - M25.551) shopp Other 12-09-2021 Evaluation note* Encounter Date Diagnosis Assessment Notes Treatment Notes Treatment Clinical Notes Sep, Essential hypertensi on (ICD-10 - I10) We will review labs at her next appt Sep, Mixed hyperlipidemia (ICD-10 - E78.2) Sep, Gastroesophageal reflux disease without esophagitis (ICD-10 - K21.9) Call if not seeing benefit, she will also work on GERD appropriate diet shopp Other 09-30-2021 Evaluation note* Encounter Date Diagnosis Assessment Notes Treatment Notes Treatment Clinical Notes Jun, Pain in right shoulder (ICD-10 - M25.511) I again advised PT but she wants to do xray first. I advised ROM exercises and ice/heat to area. She appears to be working on an adhesive capsulitis Jun, Other chronic pain (ICD-10 - G89.29) Jun, Pain in left shoulder (ICD-10 - M25.512) Jun, Osteoporosis (ICD-10 - M81.0) Jun, Post-menopausal (ICD-10 - Z78.0) shopp Other Evaluation noteNo InformationNort [employer] Other Evaluation noteNo assessment information available [facility] Work Phone: [facility] general Narrative - Reported* Type Description Date Medical History hypertension Medical History hypercholesterolemia Medical History MVP Medical History psoriasis Medical History tobacco abuse Surgical History leg surgery 2000 Surgical History breast augmentation 2000 Surgical History colonosccopy 09 Surgical History broken leg 1999 Surgical History right meniscus knee surgery 06/10 Surgical History right knee 06/11/2010 Surgical History COMPLETE LEFT ANKLE REPLACEMENT 08/10/2020 Hospitalization History SEE ABOVE shopp Other [facility] general Narrative - Reported* Type Description Date Medical History hypertension Medical History hypercholesterolemia Medical History MVP Medical History psoriasis Medical History tobacco abuse Surgical History leg surgery 2000 Surgical History breast augmentation 2000 Surgical History colonosccopy Surgical History broken leg 1999 Surgical History right meniscus knee surgery 06/10 010 Surgical History right knee 06/11/2010 Surgical History COMPLETE LEFT ANKLE REPLACEMENT 08/10/2020 Surgical History RIGHT CTS SURGERY OLEXA 02/2022 Hospitalization History SEE ABOVE shopp Other Reason for Referral Reason CTS R worse than L - EMG 2019 Diagnosis 1 Carpal tunnel syndro me of right wrist (G56.01) Referral Organization [facility] Referring Provider First Name Sudeep Referring Provider Last Name Tyron Referring Provider Specialty Family Prac helen Referred Provider Specialty ORTHOPEDIC S URGEON Referral Priority Routine Chief Complaint and Reason for Visit Chief Complaint M25.572 Chief Complaint Screening Chief Complaint Screening ankle djd Family History Relationship Condition Age at Onset Recorded Date/T laney Not Specified Cerebrovascular accident (CVA) Unknown Borderline diabetes mellitus Unknown father Malignant neoplasm of lung Unknown brother Malignant neoplasm of prostate Unknown Malignant neoplasm of bone Unknown Advance Directives Advance Directive Response Recorded Date/ Time Advance Directives No June 1:23pm Advance Directive Response Recorded Date/ Time Advance Directives No June 12:23pm Summary Purpose Additional Source Comments REASON FOR VISIT (unrecogniz ed section and content) SHOULDER PAIN, BILATERAL.XRA Y RESULTS6 month Follow up, RENÉ APPT ON MONDAY FOR HER LEFT ANKLE, HEARTBURNmed requestLAB RESULTSxray orderREFILLBILATERAL HAND PAIN WITH NUMB AND TINGLINGOrthopedic consultpain medicationpost op scripts6 month Follow up - HTNvoltarenDepressionDepression/Ackerman PtLeft hand Numbnessrefillrefill6 month Follow up, interested in carotid dopplerHandicap placardCBrefillMAWV, Left chest pain Care Teams (unrecognized sec tion and content) Team Status: Inactive Member Role Status Dates Sudeep Ackerman DO Primary Care Provider Active Gerard Marques DPM MS Attending Provider Active Team Status: Active Member Role Status Dates Sudeep Ackerman DO Primary Care Provider Active Team Status: Inactive Member Role Status Dates Sudeep Ackerman DO Primary Care Provider, Attending Provider Active Goals (unrecognized section and content) Goals may be documented in a n alternate section INFORMATION SOURCE (unrecogn ized section and content) DATE CREATED AUTHOR 11/09/2022 [facility] DATE CREATED AUTHOR AUTHOR'S ORGANIZ ATION 10/18/2023 [facility] FOR RECORDS PERTAINING TO PATIENTS WHO ARE OR HAVE BEEN ENROLLED IN A CHEMICAL DEPENDENCY/SUBSTANCEABUSE PROGRAM, SOME INFORMATION MAY BE OMITTED. This clinical summary was aggregated from multiple sources. Caution should be exercised in using it in the provision of clinical care. This summary normalizes information from multiple sources, and as a consequence, information in this document may materially change the coding, format and clinical context of patient data. In addition, data may be omitted in some cases. CLINICAL DECISIONS SHOULD BE BASED ON THE PRIMARY CLINICAL RECORDS. [facility] [employer] [facility]. provides no warranty or guarantee of the accuracy or completeness of information in this document.
== END 2023-10-31 14:14 | disposition home or self-care (01) ==
LOC: PM 14:14
PROVIDERS: PCP Family Medicine; Visit Provider Anesthesiology Pain Medicine
DX: M79.672 Pain in left foot (principal); G89.29 Other chronic pain
CPT/HCPCS: G0463